=== PATIENT | male | born 1960 | race Hispanic/Latino ===

== ENCOUNTER 2016-09-03 13:18 | Emergency (ER) | payer OTHER ==
[2016-09-03 13:41] VITALS: BMI 38.7
[2016-09-03 13:46] VITALS: RESP 18; TEMP 98.2
--- NOTE | 2016-09-03 14:32 | ED PDOC ---
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 Pt reports that beginning last evening he noticed the right side of his face was swollen. He indicates it felt like a baseball on the side of his face. He reports taking a Benadryl and the facial swelling subsiding. He reports that the swelling returned today prior to arrival and he decided to come into the emergency department for evaluation. As he drove to the emergency department he indicates the swelling subsided on the drive over. He denies taking any new medications or eating any new foods. He denies any tooth pain, ear pain or changes in vision. He denies any pain with chewing or change in his taste. He denies fever, chest pain, and shortness of breath. He reports a previous episode of one sided facial swelling years ago but reports his symptoms resolved without medical intervention. (Chris Pisano) Past Medical History - Provider Review Nursing Documentation Reviewed: Yes - Past History Past History: Non-Contributing - Infectious Disease Hx of Infectious Diseases: None - Cardiac Hx Pacemaker: No - Pulmonary Hx Respiratory Disorders: No - Neurological Hx Paralysis: No - HEENT Hx HEENT Disorder: No - Renal Hx Renal Disorder: No - Endocrine/Metabolic Hx Endocrine Disorders: Yes Hx Diabetes Mellitus Type 2: Yes (no meds) - Hematological/Oncological Hx Blood Transfusions: No Hx Blood Transfusion Reaction: No - Integumentary Hx Dermatological Disorder: No - Musculoskeletal/Rheumatological Hx Musculoskeletal Disorders: Yes - Gastrointestinal Hx Gastrointestinal Disorders: Yes Other/Comment: ventral hernia. Liver cirrhosis - Genitourinary/Gynecological Hx Genitourinary Disorders: Yes Hx Hematuria: Yes - Psychiatric Hx Emotional Abuse: No Hx Physical Abuse: No Hx Substance Use: No - Surgical History Hx Tonsillectomy: Yes Other/Comment: brain tumor sx. deviated septum. vein stripping on R leg - Anesthesia Hx Anesthesia: Yes Hx Anesthesia Reactions: No Hx Malignant Hyperthermia: No - Suicidal Assessment Feels Threatened In Home Enviroment: No Family/Social History - Physician Review Nursing Documentation Reviewed: Yes Family/Social History: No Known Family HX Smoking Status: Light Smoker < 10 Cigarettes Daily Hx Alcohol Use: No Hx Substance Use: No Allergies/Home Meds Allergies/Adverse Reactions: Allergies NSAIDS (Non-Steroidal Anti-Inflamma Allergy (Severe, Verified 01/14/16 15:23) ANAPHYLAXIS oxaprozin [From Daypro] Allergy (Severe, Verified 01/14/16 15:23) SWELLING Home Medications: Home Meds Medication Instructions Recorded Confirmed Methadone 40 mg PO DAILY 08/05/11 09/03/16 Gabapentin [Neurontin] 300 mg PO BID 02/16/16 09/03/16 Review of Systems - Physician Review All systems were reviewed & negative as marked: Yes - Review of Systems Constitutional: absent: Fevers Eyes: absent: Vision Changes ENT: absent: Hearing Changes, TMJ Pain Respiratory: absent: SOB Physical Exam Vital Signs Reviewed: Yes Temperature: Afebrile Blood Pressure: Hypertensive Pulse: Regular Respiratory Rate: Normal Appearance: Positive for: Well-Appearing Pain Distress: None Mental Status: Positive for: Alert and Oriented X 3 - Systems Exam Head: Present: Atraumatic, Normocephalic, Swelling (right side of face along posterior mandible) Pupils: Present: PERRL Extroacular Muscles: Present: EOMI Conjunctiva: Present: Normal Mouth: Present: Dry, Other (dentures) Pharnyx: No: ERYTHEMA, EXUDATE, TONSILS ENLARGED Neck: Present: Normal Range of Motion. No: MIDLINE TENDERNESS Respiratory/Chest: Present: Clear to Auscultation, Good Air Exchange. No: Respiratory Distress, Accessory Muscle Use Cardiovascular: Present: Regular Rate and Rhythm, Normal S1, S2. No: Murmurs Abdomen: Present: Normal Bowel Sounds. No: Tenderness, Peritoneal Signs Upper Extremity: Present: Normal Inspection. No: Cyanosis, Edema Lower Extremity: Present: Normal Inspection. No: Edema Neurological: Present: GCS=15, CN II-XII Intact, Speech Normal Skin: Present: Warm, Dry, Normal Color. No: Rashes Psychiatric: Present: Alert, Oriented x 3, Normal Insight, Normal Concentration Medical Decision Making ED Course and Treatment: 09/03/16 14:34 Impression: Pt is a 56 year old male who complains of right sided facial swelling for the past 18 hours. Differential Diagnosis included but are not limited to: - Parotitis - Angioedema secondary to allergic reaction Plan: - Pt airway is intact - Amoxicillin for suspected parotitis - Lemon drops for encouraged salivation - Reassess and disposition Progress Notes: 09/03/16 14:42 (Chris Pisano) In agreement with resident note, which includes further HPI details. Patient was seen and evaluated with resident, came up with plan and treatment together. (Carlos Bird DO) - PA / [employer] / Resident Statement / has reviewed & agrees with the documentation as recorded. / has examined the patient and agrees with the treatment plan. Disposition/Present on Arrival - Present on Arrival Any Indicators Present on Arrival: No History of DVT/PE: No History of Uncontrolled Diabetes: No Urinary Catheter: No History of Decub. Ulcer: No History Surgical Site Infection Following: None - Disposition Have Diagnosis and Disposition been Completed?: Yes Disposition Time: 14:25 Patient Plan: Discharge - Disposition Diagnosis: Parotitis Disposition: HOME/ ROUTINE Condition: GOOD Discharge Instructions (ExitCare): Sialoadenitis (ED) Additional Instructions: Jose, thank you for letting us take care of you today. Your provider was Dr. Pisano. You were treated for Parotitis. The emergency medical care you received today was directed at your acute symptoms. If you were prescribed any medication, please fill it and take as directed. It may take several days for your symptoms to resolve. Return to the Emergency Department if your symptoms worsen, do not improve, or if you have any other problems. Please contact your doctor or call one of the physicians/clinics you have been referred to that are listed on the Patient Visit Information form that is included in your discharge packet. Bring any paperwork you were given at discharge with you along with any medications you are taking to your follow up visit. Our treatment cannot replace ongoing medical care by a primary care provider (PCP) outside of the emergency department. Thank you for allowing the [facility] team to be part of your care today. Prescriptions: Amoxicillin 500 mg PO TID #30 tab Referrals: Osmani Subramanian MD [Primary Care Provider] - Follow up with primary
[2016-09-03 14:48] VITALS: BP 121/76; PULSE 73; O2SAT 99
== END 2016-09-03 14:48 | disposition home or self-care (01) ==
LOC: ED 13:18
DX: K11.20 Sialoadenitis, unspecified (principal)

== ENCOUNTER 2017-02-22 08:29 | Observation (INO) | payer BC, OTHER ==
[2017-02-22 10:10] LABS: BASO # 0.02 K/mm3 (0.0-2.0); BASO % 0.3 % (0.0-3.0); EOS # 0.2 (0.0-0.7); EOS % 2.8 % (1.5-5.0); GRAN # 4.33 (1.4-6.5); HEMOGLOBIN 11.1 g/dL (14.0-18.0); LYMPH # 1.3 (1.2-3.4); LYMPH % 19.3 % (22.0-35.0); MEAN CELL VOLUME 82.7 fl (80.0-105.0); MEAN CORPUSCULAR HEMOGLOBIN 25.9 pg (25.0-35.0); MEAN CORPUSCULAR HGB CONC 31.4 g/dl (31.0-37.0); MONO # 0.8 (0.1-0.6); MONO % 12.6 % (1.0-6.0); RBC 4.28 10^6/uL (3.5-6.1); RED CELL DISTRIBUTION WIDTH 15.8 % (11.5-14.5); WHITE BLOOD COUNT 6.7 10^3/ul (4.5-11.0)
--- NOTE | 2017-02-22 10:17 | ED PDOC ---
Arrival/HPI - General Chief Complaint: Weakness/Neurological Deficit Time Seen by Provider: 02/22/17 09:11 Historian: Patient - History of Present Illness Narrative History of Present Illness (Text): 02/22/17 10:15 Patient is a 56 yo male, past medical history of liver disease, presents to the Emergency Department with increased fatigue and sleepiness over the past two days. Also reports feeling more unsteady on his feet. Denies headache, denies chest pain or shortness of breath. Patient states symptoms are similar to when "I get high ammonia levels". Denies abdominal pain. Denies nausea or vomiting. Reports no bowel movement for two days. Past Medical History - Past History Past History: Non-Contributing - Infectious Disease Hx of Infectious Diseases: None - Cardiac Hx Cardiac Disorders: No Hx Pacemaker: No - Pulmonary Hx Respiratory Disorders: No - Neurological Hx Neurological Disorder: No Hx Paralysis: No - HEENT Hx HEENT Disorder: No - Renal Hx Renal Disorder: No - Endocrine/Metabolic Hx Endocrine Disorders: Yes Hx Diabetes Mellitus Type 2: Yes (no meds) - Hematological/Oncological Hx Blood Transfusions: No Hx Blood Transfusion Reaction: No Hx Cirrhosis: Yes Hx Hepatitis C: Yes - Integumentary Hx Dermatological Disorder: No - Musculoskeletal/Rheumatological Hx Musculoskeletal Disorders: Yes - Gastrointestinal Hx Gastrointestinal Disorders: Yes Hx Gastroesophageal Reflux: Yes Other/Comment: ventral hernia. Liver cirrhosis - Genitourinary/Gynecological Hx Genitourinary Disorders: Yes Hx Hematuria: Yes - Psychiatric Hx Psychophysiologic Disorder: No Hx Emotional Abuse: No Hx Physical Abuse: No Hx Substance Use: No - Surgical History Hx Tonsillectomy: Yes Other/Comment: brain tumor sx. deviated septum. vein stripping on R leg - Anesthesia Hx Anesthesia: Yes Hx Anesthesia Reactions: No Hx Malignant Hyperthermia: No - Suicidal Assessment Feels Threatened In Home Enviroment: No Family/Social History Family/Social History: Unknown Family HX Smoking Status: Light Smoker < 10 Cigarettes Daily Hx Alcohol Use: No Hx Substance Use: No Allergies/Home Meds Allergies/Adverse Reactions: Allergies NSAIDS (Non-Steroidal Anti-Inflamma Allergy (Severe, Verified 02/22/17 20:44) ANAPHYLAXIS oxaprozin [From Daypro] Allergy (Severe, Verified 02/22/17 20:44) SWELLING Home Medications: Home Meds Medication Instructions Recorded Confirmed Methadone 40 mg PO DAILY 08/05/11 02/22/17 Review of Systems - Review of Systems Constitutional: Fatigue Eyes: absent: Eye Pain ENT: absent: Hearing Changes Respiratory: absent: SOB, Cough Cardiovascular: absent: Chest Pain Gastrointestinal: Stool Changes, Appetite Changes. absent: Abdominal Pain, Nausea, Vomiting Genitourinary Male: absent: Dysuria, Frequency Musculoskeletal: absent: Back Pain Skin: absent: Rash Neurological: Dizziness. absent: Headache, Focal Weakness, Speech Changes Endocrine: absent: Polyuria Hemo/Lymphatic: absent: Easy Bleeding Psychiatric: absent: Depression Physical Exam - Physical Exam Narrative Physical Exam (Text): Head: Atraumatic. Normocephalic. Eyes: PERRL. EOMI. Conjunctivae are not pale. ENT: Mucous membranes are moist and intact. Oropharynx is clear and symmetric. Neck: Supple. Full ROM. No JVD. No lymphadenopathy. No meningeal signs. Cardiovascular: Regular rate. Regular rhythm. Systolic murmur. Pulmonary/Chest: No evidence of respiratory distress. Clear to auscultation bilaterally. No wheezing, rales or rhonchi. Abdominal: Distended but soft. Large ventral hernia that is not tender. Normoactive bowel sounds. Back: No CVA tenderness. Rectal: no gross bleeding Extremities: No edema. No cyanosis. No clubbing. Full range of motion in all extremities. No calf tenderness. Skin: Skin is warm and dry. No petechiae. No purpura. Neurological: Sleepy but attentive, awake. No asterixis. No meningeal signs. No focal motor or sensory deficits. No slurred speech or facia droop. Psychiatric: Good eye contact. Normal interaction, affect, and behavior. Vital Signs Reviewed: Yes Vital Signs Temp Pulse Resp BP Pulse Ox 02/22/17 16:00 97.3 F L 60 20 152/70 H 98 02/22/17 14:57 53 L 18 145/75 95 02/22/17 12:18 72 18 155/71 H 100 02/22/17 12:01 59 L 18 145/79 99 02/22/17 09:30 98.2 F 62 18 147/88 99 Temperature: Afebrile Appearance: Positive for: Well-Appearing, Non-Toxic, Comfortable Pain Distress: None Mental Status: Positive for: Alert and Oriented X 3 Finger Stick Blood Glucose: 149 Medical Decision Making ED Course and Treatment: 02/24/17 12:33 Patient is a 56 yo male with past medical history of cirrhosis with increased weakness which he states is typical of "when my ammonia is elevated". On exam, he is afebrile, abdomen is soft and nontender. No melena or gross bleeding noted or reported. Patient will be admitted for hepatic encephalopathy given elevated ammonia and symptoms. Admission accepted by Dr. Sutton, covering for his PMD. - Lab Interpretations Lab Results: 02/22/17 09:50 02/22/17 09:50 Lab Results 02/22/17 09:50: Ammonia 44 H 02/22/17 09:50: Sodium 137, Potassium 3.8, Chloride 104, Carbon Dioxide 23, Anion Gap 13, BUN 21, Creatinine 0.7 L, Est GFR ( Amer) > 60, Est GFR ( Non-Af Amer) > 60, Random Glucose 149 H, Calcium 8.5, Total Bilirubin 1.0, AST 22, ALT 22, Alkaline Phosphatase 85, Lactate Dehydrogenase 395, Total Creatine Kinase 42, Troponin I < 0.01, Total Protein 7.2, Albumin 3.4, Globulin 3.8, Albumin/Globulin Ratio 0.9 L 02/22/17 09:50: PT 15.5 H, INR 1.34 H, APTT 30.8 02/22/17 09:50: WBC 6.7, RBC 4.28, Hgb 11.1 L, Hct 35.4 L, MCV 82.7, MCH 25.9, MCHC 31.4, RDW 15.8 H, Plt Count 94 L, MPV 12.0 H, Gran % 65.0, Lymph % (Auto) 19.3 L, Wolfe % (Auto) 12.6 H, Eos % (Auto) 2.8, Baso % (Auto) 0.3, Gran # 4.33, Lymph # 1.3, Wolfe # 0.8 H, Eos # 0.2, Baso # 0.02 - EKG Interpretation Interpreted by ED Physician: Yes Type: 12 lead EKG - Medication Orders Current Medication Orders: Discontinued Medications Lactulose (Enulose) 30 gm PO DAILY [facility] Last Admin: 02/23/17 09:03 Dose: 30 gm Methadone HCl (Methadone) 40 mg PO DAILY [facility] Last Admin: 02/23/17 09:03 Dose: 40 mg MAR Pain Assessment Document 02/23/17 09:03 CHRISTINA (Rec: 02/23/17 09:03 [facility] [id number]) Pain Reassessment Is this a pain reassessment? No Sleep Is patient sleeping during reassessment? No Presence of Pain Presence of Pain No Pneumococcal Polyvalent Vaccine (Pneumovax 23 Vaccine) 0.5 ml IM .ONCE ONE Stop: 02/22/17 22:15 Disposition/Present on Arrival - Present on Arrival Any Indicators Present on Arrival: No History of DVT/PE: No History of Uncontrolled Diabetes: No Urinary Catheter: No History of Decub. Ulcer: No History Surgical Site Infection Following: None - Disposition Have Diagnosis and Disposition been Completed?: Yes Diagnosis: Hepatic encephalopathy, Fatigue, Anemia Disposition: HOSPITALIZED Disposition Time: 11:25 Patient Plan: Admission Condition: FAIR
[2017-02-22 10:18] LABS: ALB/GLOB RATIO 0.9 (1.1-1.8); ALBUMIN 3.4 g/dL (3.0-4.8); ALT/SGPT 22 U/L (7-56); AST/SGOT 22 U/L (17-59); BLOOD UREA NITROGEN 21 mg/dL (7-21); CALCIUM 8.5 mg/dL (8.4-10.5); GFR AFRICAN-AMERICAN > 60; GFR NON-AFRICAN AMERICAN > 60
[2017-02-22 10:20] LABS: INR 1.34 (0.93-1.08); PARTIAL THROMBOPLASTIN TIME 30.8 Seconds (25.1-36.5); PROTHROMBIN TIME 15.5 SECONDS (9.4-12.5)
[2017-02-22 10:28] LABS: TROPONIN I < 0.01 ng/mL
[2017-02-22 16:42] VITALS: RESP 20
[2017-02-22 22:13] VITALS: BMI 40.3
[2017-02-22] MEDS ORDERED: Influenza Vaccine 60 mcg/0.5 mL SYR (4YR UP) IM ONE (22:14)
[2017-02-22] MEDS ORDERED: Pneumococcal 23-Valent Vaccine IM ONE (22:14)
[2017-02-23 09:12] VITALS: BP 140/80; PULSE 71; TEMP 97.9; O2SAT 96
--- NOTE | 2017-02-23 10:50 | CON ---
DATE:02/22/2017 REASON FOR CONSULTATION: Change in bowel habits and cirrhosis. HISTORY OF PRESENT ILLNESS: This is a 56-year-old patient with past medical history of cirrhosis of the liver secondary to hepatitis C who was noticed by his to have more sleepiness and increased fatigue for over two days, who was brought to the emergency room. The patient was found to have elevated ammonia level as well as hepatic encephalopathy. He was admitted for evaluation. OTHER PAST MEDICAL HISTORY: Significant for hepatitis C, status post treatment, now in sustained virologic response; history of IVDA, on methadone; hypertension; and gastroesophageal reflux disease. The patient has Schatzki ring; history of food impaction before - removed; history of colonic polyp. Last colonoscopy was in 02/2014 and endoscopy - last EGD was in 02/2016. The patient is also being found to be anemic. PAST SURGICAL HISTORY: Significant for cholecystectomy. ALLERGIES: ALLERGIC TO NSAID AND OXAPROZIN. SOCIAL HISTORY: He is HIVDA and ex-smoker. REVIEW OF SYSTEMS: Positive as above. Other systems reviewed. PHYSICAL EXAMINATION GENERAL: On examination, the patient is now more alert. VITAL SIGNS: On examination, temperature is afebrile at 97.3, blood pressure 152/70, pulse 60, respirations 20, and O2 saturation 98%. HEENT: Atraumatic, anicteric. NECK: Supple. HEART: S1 and S2 heard. LUNGS: Bilateral air entry present, ABDOMEN: Soft. No tenderness. EXTREMITIES: No cyanosis. No clubbing. NEUROLOGIC: Alert. The patient has mild asterixis present. LABORATORY DATA: Hemoglobin 11.1, hematocrit 35.4, WBC 6.7, and platelets 94,000. Chemistries are essentially unremarkable except for glucose of 149. IMPRESSION: This is a 56-year-old patient with cirrhosis secondary to hepatitis C, status post treatment, now admitted with hepatic encephalopathy, on lactulose. The other comorbidities include Schatzki ring and gastroesophageal reflux disease. RECOMMENDATIONS: We would recommend: 1. Followup of ammonia level start the patient on Xifaxan 550 mg b.i.d. 2. The patient is also anemic. We are going to request for iron studies B12 and folate. 3. The patient has thrombocytopenia. It is reasonable to start a low-dose PPI or H2 blockers. He would benefit from an elective colonoscopic and endoscopic evaluation. Thank you very much for allowing me to participate in the care of the patient. Gadiel Correa MD [facility]
--- NOTE | 2017-02-23 18:15 | CARD ---
APPROVED REPORT EKG Measurement Heart [id number] <Conclusion> Normal sinus rhythm Normal ECG
--- NOTE | 2017-02-24 02:52 | HP ---
CHIEF COMPLAINT AND HISTORY OF PRESENT ILLNESS: This is a 56-year-old male who has come into the hospital with past medical history of cirrhosis secondary to hepatitis C with complaints of sleepiness and fatigue. The patient has a history of hepatic encephalopathy and came in for further evaluation. The patient was found to have elevated pneumonia and it was felt that the patient may be having recurrence of his encephalopathic symptoms. He is currently seen by me early this morning. He has no complaints of any chest pain or shortness of breath. He is awake and alert. He has no nausea or vomiting. No fever, headaches, or chills. He says he was able to sleep well last night. He has no complaints. REVIEW OF SYSTEMS: All other review of symptoms are within normal limits except as mentioned. ALLERGIES: NSAID AND OXAPROZIN. PAST SURGICAL HISTORY: Cholecystectomy. SOCIAL HISTORY: He is a drug user and ex-smoker. PAST MEDICAL HISTORY: Hepatitis C and GERD. HOME MEDICATIONS: Methadone. PHYSICAL EXAMINATION: VITAL SIGNS: The patient has temperature of 97.3, pulse of 60, blood pressure 152/70, respirations 20, height is 5 feet and 6 inches, 50 pounds, BMI is 40. GENERAL: The patient lying in bed, uncomfortable, and in no acute distress. HEENT: Atraumatic and normocephalic. Anicteric sclerae. Moist mucosa. [place] conjunctivae. No oral lesions. NECK: No JVD, anterior and posterior adenopathy, thyromegaly, or bruits. CARDIOVASCULAR: S1 and S2 regular. No murmur, rubs, or gallop. LUNGS: Clear to auscultation bilaterally. No wheezes, rales, or rhonchi. ABDOMEN: Bowel sounds are positive. Soft, nontender and nondistended. No hepatosplenomegaly. No rebound and no guarding. EXTREMITIES: No cyanosis, clubbing, or edema. NEUROLOGIC: No facial asymmetry. Tongue is midline. No uvula deviation. Power is 5/5 upper extremity and lower extremity. Sensation intact in upper extremity and lower extremity. PSYCHIATRIC: He is awake, alert and oriented x3. No anxiety or depression. He has normal affect. GENITOURINARY: No CVA tenderness. VASCULAR: 2+ pulses in the carotid pulses and pedal pulses. SKIN: No erythema or nodules. SPINE: Shows normal curvature. ASSESSMENT: 1. Hepatic encephalopathy, resolved. 2. Hepatitis C. 3. Cirrhosis. 4. . PLAN: The patient is admitted to the hospital. He was given flu shot and pneumonia shot. He is going to be continued on his methadone. The patient was felt to be comfortable and back to his baseline. He was discharged home to follow up as an outpatient. I did speak to Dr. Lopez regarding the case. The patient is going to follow with Dr. his primary care doctor. CONDITION: Stable. ACTIVITIES: Increase as tolerated. Mo Sutton MD
== END 2017-02-23 11:02 | disposition home or self-care (01) ==
LOC: ED 08:29 → INTOOBSV 12:07 → ERH 12:07 → 3RNO 16:21
PROVIDERS: ADMIT Internal Medicine Nephrology; ATTEND Internal Medicine Nephrology
DX: K72.90 Hepatic failure, unspecified without coma (principal); B19.20 Unspecified viral hepatitis C without hepatic coma; K74.60 Unspecified cirrhosis of liver; F11.20 Opioid dependence, uncomplicated; K21.9 Gastro-esophageal reflux disease without esophagitis; K22.2 Esophageal obstruction; I10 Essential (primary) hypertension; E11.9 Type 2 diabetes mellitus without complications; D69.6 Thrombocytopenia, unspecified; D64.9 Anemia, unspecified; Z87.891 Personal history of nicotine dependence
CPT/HCPCS: 80053; 82140; 82550; 83615; 84484; 85025; 85610; 85730; 93005; 99284; G0378

== ENCOUNTER 2018-05-07 13:05 | Day surgery (SDC) | payer OTHER ==
--- NOTE | 2018-05-07 14:16 | ED PDOC ---
Arrival/HPI - General Chief Complaint: ENT Problem Historian: Patient - History of Present Illness Narrative History of Present Illness (Text): 05/07/18 13:06 Griffin Garcia is a 58 year old male, with a past medical history of partial esophageal obstruction, who presents to the emergency department complaining of foreign body sensation for the past couple of days. Patient informs eating shrimp a couple days ago. Patient is able to tolerate small amounts of liquid PO but is unable to tolerate large amounts at once. Patient denies any fevers, chills, headache, dizziness, chest pain, shortness of breath, dyspnea on exertion, cough, diaphoresis, abdominal pain, nausea, vomiting, diarrhea, back pain, neck pain, or any other complaint. Time/Duration: < week Symptom Onset: Sudden Symptom Course: Unchanged Activities at Onset: Light Context: Home Past Medical History - Provider Review Nursing Documentation Reviewed: Yes - Past History Past History: Non-Contributing - Infectious Disease Hx of Infectious Diseases: None - Cardiac Hx Cardiac Disorders: No Hx Pacemaker: No - Pulmonary Hx Respiratory Disorders: No - Neurological Hx Neurological Disorder: No Hx Paralysis: No - HEENT Hx HEENT Disorder: No - Renal Hx Renal Disorder: No - Endocrine/Metabolic Hx Endocrine Disorders: Yes Hx Diabetes Mellitus Type 2: Yes (no meds) - Hematological/Oncological Hx Blood Transfusions: No Hx Blood Transfusion Reaction: No Hx Cirrhosis: Yes Hx Hepatitis C: Yes - Integumentary Hx Dermatological Disorder: No - Musculoskeletal/Rheumatological Hx Musculoskeletal Disorders: Yes - Gastrointestinal Hx Gastrointestinal Disorders: Yes Hx Gastroesophageal Reflux: Yes Other/Comment: ventral hernia. Liver cirrhosis - Genitourinary/Gynecological Hx Genitourinary Disorders: Yes Hx Hematuria: Yes - Psychiatric Hx Psychophysiologic Disorder: No Hx Emotional Abuse: No Hx Physical Abuse: No Hx Substance Use: No - Surgical History Hx Tonsillectomy: Yes Other/Comment: brain tumor sx. deviated septum. vein stripping on R leg - Anesthesia Hx Anesthesia: Yes Hx Anesthesia Reactions: No Hx Malignant Hyperthermia: No - Suicidal Assessment Feels Threatened In Home Enviroment: No Family/Social History - Physician Review Nursing Documentation Reviewed: Yes Family/Social History: No Known Family HX Smoking Status: Light Smoker < 10 Cigarettes Daily Hx Alcohol Use: No Hx Substance Use: No Allergies/Home Meds Allergies/Adverse Reactions: Allergies NSAIDS (Non-Steroidal Anti-Inflamma Allergy (Severe, Verified 05/07/18 13:23) ANAPHYLAXIS oxaprozin [From Daypro] Allergy (Severe, Verified 05/07/18 13:23) SWELLING Home Medications: Home Meds Medication Instructions Recorded Confirmed Methadone [Methadose] 40 mg PO DAILY 05/07/18 05/07/18 Omeprazole Magnesium [Prilosec Otc] 40 mg PO DAILY 05/07/18 05/07/18 rifAXIMin [Xifaxan] 550 mg PO BID 05/07/18 05/07/18 Review of Systems - Physician Review All systems were reviewed & negative as marked: Yes - Review of Systems Constitutional: absent: Fevers, Other (chills) ENT: Other (foreign body sensation) Respiratory: absent: SOB, Cough Cardiovascular: absent: Chest Pain, PRADHAN Gastrointestinal: absent: Abdominal Pain, Diarrhea, Nausea, Vomiting Musculoskeletal: absent: Back Pain, Neck Pain Endocrine: absent: Diaphoresis Physical Exam Vital Signs Reviewed: Yes Vital Signs Temp Pulse Resp BP Pulse Ox 05/07/18 13:23 97.8 F 92 H 18 166/92 H 96 Temperature: Afebrile Blood Pressure: Hypertensive Pulse: Regular Respiratory Rate: Normal Appearance: Positive for: Well-Appearing, Non-Toxic, Comfortable Pain Distress: None Mental Status: Positive for: Alert and Oriented X 3 - Systems Exam Head: Present: Atraumatic, Normocephalic Pupils: Present: PERRL Extroacular Muscles: Present: EOMI Conjunctiva: Present: Normal Mouth: Present: Moist Mucous Membranes Pharnyx: No: Muffled/Hoarse Voice (Patient speaking in full sentences; speech unchanged) Neck: Present: Normal Range of Motion Respiratory/Chest: Present: Clear to Auscultation, Good Air Exchange. No: Respiratory Distress, Accessory Muscle Use Cardiovascular: Present: Regular Rate and Rhythm, Normal S1, S2. No: Murmurs Abdomen: No: Tenderness, Distention, Peritoneal Signs Back: Present: Normal Inspection Upper Extremity: Present: Normal Inspection. No: Cyanosis, Edema Lower Extremity: Present: Normal Inspection. No: Edema Neurological: Present: GCS=15, CN II-XII Intact, Speech Normal Skin: Present: Warm, Dry, Normal Color. No: Rashes Psychiatric: Present: Alert, Oriented x 3, Normal Insight, Normal Concentration Medical Decision Making ED Course and Treatment: 05/07/18 13:06 Impression: Patient is a 58 year old male who presents to the emergency department for foreign body sensation. Pt has a history of partial esophageal obstruction. Patient is able to tolerate small amounts of liquid PO. Plan: -- CT Chest w/o contrast -- CT Neck w/o contrast -- Labs -- Reassess and disposition Prior Visits: Notes and results from previous visits were reviewed. Progress Notes: - RAD Interpretation Narrative RAD Interpretations (Text): 05/07/18 15:21 CT Chest w/o contrast shows: IMPRESSION: Soft tissue foreign body in the distal esophagus. No evidence of esophageal perforation 05/07/18 16:34 CT Neck w/o contrast shows: IMPRESSION: Unremarkable non-contrast enhanced CT of the neck. Radiology Orders: 05/07/18 13:41 CHEST W/O CONTRAST [CT] Stat NECK SOFT TISSUE W/O CONTRAST [CT] Stat Escalation Engineer: Radiologist - Scribe Statement The provider has reviewed the documentation as recorded by the Scribe Carlos Uribe All medical record entries made by the Gabrielibrozina were at my direction and personally dictated by me. I have reviewed the chart and agree that the record accurately reflects my personal performance of the history, physical exam, medical decision making, and the department course for this patient. I have also personally directed, reviewed, and agree with the discharge instructions and disposition. Disposition/Present on Arrival - Present on Arrival Any Indicators Present on Arrival: No History of DVT/PE: No History of Uncontrolled Diabetes: No Urinary Catheter: No History of Decub. Ulcer: No History Surgical Site Infection Following: None - Disposition Have Diagnosis and Disposition been Completed?: Yes Diagnosis: Esophageal obstruction due to food impaction Disposition: HOSPITALIZED Disposition Time: 15:20 Patient Plan: Admission Condition: STABLE
[2018-05-07 14:55] LABS: BASO # 0.03 K/mm3 (0.0-2.0); BASO % 0.5 % (0.0-3.0); EOS # 0.2 (0.0-0.7); EOS % 4.1 % (1.5-5.0); HEMOGLOBIN 13.4 g/dL (14.0-18.0); LYMPH # 1.4 (1.2-3.4); LYMPH % 25.2 % (22.0-35.0); MEAN CELL VOLUME 85.2 fl (80.0-105.0); MEAN CORPUSCULAR HEMOGLOBIN 28.8 pg (25.0-35.0); MEAN CORPUSCULAR HGB CONC 33.8 g/dl (31.0-37.0); MEAN PLATELET VOLUME 12.2 fl (7.0-11.0); MONO # 0.5 (0.1-0.6); MONO % 8.5 % (1.0-6.0); RBC 4.65 10^6/uL (3.5-6.1); RED CELL DISTRIBUTION WIDTH 13.4 % (11.5-14.5); WHITE BLOOD COUNT 5.6 10^3/uL (4.5-11.0)
[2018-05-07 15:07] LABS: ALB/GLOB RATIO 0.9 (1.1-1.8); ALT/SGPT 9 U/L (7-56); AST/SGOT 25 U/L (17-59); BLOOD UREA NITROGEN 18 mg/dL (7-21); CALCIUM 9.2 mg/dL (8.4-10.5); GFR NON-AFRICAN AMERICAN > 60
--- NOTE | 2018-05-07 15:11 | CT ---
Date of service: 05/07/2018 PROCEDURE: CT NECK WITHOUT CONTRAST HISTORY: ? foreign body in esophagus COMPARISON: None available. TECHNIQUE: CT of the neck without intravenous contrast. Coronal and sagittal reformats generated. Radiation dose: Total exam DLP = 582.61 mGy-cm. This CT exam was performed using one or more of the following dose reduction techniques: Automated exposure control, adjustment of the mA and/or kV according to patient size, and/or use of iterative reconstruction technique. FINDINGS: NASOPHARYNX: Unremarkable. SUPRAHYOID NECK: Unremarkable oropharynx, oral cavity, parapharyngeal space and retropharyngeal space. INFRAHYOID NECK: Unremarkable larynx, hypopharynx, and supraglottic space. Vocal cords intact. MASS: None. GLANDS: Parotid and submandibular glands unremarkable. Normal size thyroid gland, without nodule. LYMPH NODES: Normal. No lymphadenopathy. CERVICAL SPINE: No fracture or focal lesion. OTHER FINDINGS: No evidence of foreign body IMPRESSION: Unremarkable non-contrast enhanced CT of the neck.
--- NOTE | 2018-05-07 15:25 | CT ---
Date of service: 05/07/2018 PROCEDURE: CT Chest without contrast HISTORY: ? foreign body in esophagus COMPARISON: None available. TECHNIQUE: Contiguous axial images were obtained through the chest without intravenous contrast enhancement. Sagittal and coronal reconstructions were performed. Radiation dose: Total exam DLP = 841.32 mGy-cm. This CT exam was performed using one or more of the following dose reduction techniques: Automated exposure control, adjustment of the mA and/or kV according to patient size, and/or use of iterative reconstruction technique. FINDINGS: LUNGS: Clear lungs. Visualized airway clear MEDIASTINUM: Unremarkable thoracic aorta. No aneurysm. Normal sized heart. Main pulmonary artery unremarkable. No vascular congestion. No lymphadenopathy. Minimal aortic calcification. There is a foreign body in the distal esophagus measuring 22 mm in diameter and 34 mm in length. This is consistent with an ingested piece of meat. The study was reviewed with Dr. Bird. PLEURA: No pleural fluid. No pneumothorax. BONES: No fracture. No destructive lesion. UPPER ABDOMEN: Grossly unremarkable. OTHER FINDINGS: None. IMPRESSION: Soft tissue foreign body in the distal esophagus. No evidence of esophageal perforation
[2018-05-07] MEDS ORDERED: Glucagon Recombinant 1 mg Inj IV STA (15:43)
[2018-05-07] MEDS: Sodium Chloride 0.9% 1,000 ML IV SCH (15:47)
[2018-05-07] MEDS ORDERED: Lactated Ringer's 1,000 ML IV SCH (16:45)
[2018-05-07] MEDS ORDERED: Propofol 10 mg/ml Inj (20 ML) ONE ×4 (16:54→18:27)
[2018-05-07 21:58] VITALS: BMI 40.8
[2018-05-07 23:22] VITALS: RESP 18
--- NOTE | 2018-05-07 23:35 | CON ---
DATE: 05/07/2018 HISTORY OF PRESENT ILLNESS: I examined Mr. Garcia this afternoon. He is a 58-year-old white male with a past medical history of esophageal stricture, esophagitis, hepatitis C, hepatic encephalopathy, was evaluated in the emergency room for complaints of dysphagia. Patient indicated several days ago eating a shrimp meal and subsequently being unable to swallow large volumes of either liquids or solids. The patient has been attempting the use of solids and liquids over the weekend, but vomits up after every meal. Prior to , patient was eating regular meals with nothing getting stuck. His last endoscopic procedure was in 2017 at least by [facility]. At that particular time point, patient was found to have a Schatzki's ring, hiatal hernia with grade 1 varices, also a portal hypertensive gastropathy noted in the fundus. PHYSICAL EXAMINATION VITAL SIGNS: I examined this patient's vital signs. HEENT: Noncontributory. Please note that the patient is talking and is swallowing his saliva. LUNGS: Clear to auscultation. HEART: Regular rhythm. ABDOMEN: Protuberant, soft. No tenderness elicited. LABORATORY DATA: H and H is 13 and 30.9. Chemistry is noncontributory. The patient's bilirubin and AST/ALT ratio within normal limits. His creatinine kinase is a 106. ASSESSMENT: This is a 58-year-old white male with past medical history of hepatitis C, hepatic encephalopathy, history of esophagitis with Schatzki's ring and with complaints of dysphagia. PLAN: The patient's endoscopy is planned for shortly. Further report after the procedure. The patient was advised of the risks, benefits and alternatives of the procedure including risk of hemorrhage, perforation, surgery and also the alternative of no procedure. He is aware of the above and agreed to sign the consent for the procedure. Bhupinder Kirkland DO, PhD NAHID
[2018-05-08] MEDS: Sodium Chloride 0.9% 1,000 ML IV SCH (02:19)
[2018-05-08 07:21] VITALS: BP 131/71; PULSE 67; TEMP 98.6; O2SAT 97
--- NOTE | 2018-05-08 10:52 | PN ---
DATE: 05/08/2018 SUBJECTIVE: I saw Mr. Garcia this morning. He is a 58-year-old white male known to this training consultant with past medical history of hepatitis C, esophagitis, Schatzki's ring, hiatal hernia. The patient was admitted yesterday for observation after undergoing a several-hour esophageal disimpaction procedure. The bolus was a mixture of both hard and soft material, which was difficult to remove, involved the distal third of the esophagus. The patient was examined after the procedure yesterday. There was no crepitus, shortness of breath, or infiltrates based on clinical exam. The patient denied any chest pain yesterday also. The patient's O2 sat remained in 98% throughout the procedure. Recovery area, the patient was complaining about some degree of "sore throat", but his O2 sat was optimal. The patient had no temperatures. Patient's vital signs overnight indicated the patient's vital signs are within normal limits with no temperatures. This was corroborated by the nursing staff. Nurse indicated the patient had no difficulty last night, tolerated small volume of clears. PHYSICAL EXAMINATION: VITAL SIGNS: I reviewed this patient's vital signs. HEENT: Noncontributory. LUNGS: Clear to auscultation. HEART: Regular rate and rhythm. ABDOMEN: Protuberant. No tenderness elicited. CHEST: Depending on clinical exam, no infiltrates were heard this morning. The patient denied any retrosternal chest pain. No crepitus was appreciated on the anterior portion of the thorax. The patient also denied any blood in saliva last night. ASSESSMENT: This is a 58-year-old white male with a history of hepatitis C, esophagitis, hiatal hernia, who underwent an upper endoscopy procedure yesterday for removal of an esophageal bezoar impaction. The patient tolerated the procedure well; however, still experiencing a little bit of discomfort most likely from the overtube. Aside from that, he is asymptomatic. I advanced his diet to full liquids this morning. If no other problems patient should be discharged later on this morning. Case reviewed with Dr. Correa after the procedure yesterday and he will follow up with Dr. Correa later on this week or early next week. The patient was advised to use significant dietary discretion. Bhupinder Kirkland DO, PhD NAHID
== END 2018-05-08 09:14 | disposition home or self-care (01) ==
LOC: ED 13:05 → ENDO 16:00 → 5RNO 20:17 → ENDO 05-08 09:14
PROVIDERS: ATTEND Internal Medicine Gastroenterology
DX: T18.128A Food in esophagus causing other injury, initial encounter (principal); K22.70 Barrett's esophagus without dysplasia; K44.9 Diaphragmatic hernia without obstruction or gangrene; I85.00 Esophageal varices without bleeding; K29.70 Gastritis, unspecified, without bleeding; B19.20 Unspecified viral hepatitis C without hepatic coma; K74.60 Unspecified cirrhosis of liver
CPT/HCPCS: 43247; 70490; 71250; 80053; 85025; J2001; J2704; J7030 ×2; J7120

== ENCOUNTER 2018-06-28 08:59 | Outpatient (CLI) | payer OTHER | END 2018-06-28 09:00 | disposition home or self-care (01) | LOC: RAD 08:59 ==